=== PATIENT | male | born 1980 | race Caucasian/White ===

== ENCOUNTER 2018-11-21 11:49 | Inpatient (IN) | payer OTHER ==
[2018-11-21 12:42] VITALS: BMI 25.1
--- NOTE | 2018-11-21 12:57 | HP ---
COWS - Scale Resting Pulse: 1= [place] 81-100 Sweatin= No chills or Flushing Restless Observation: 1= Difficult to Sit Still Pupil Size: 0= Normal to Room Light Bone or Joint Aches: 2= Severe Diffuse Aches Runny Nose/ Eye Tearin= Nasal Congestion GI Upset > 30mins: 1= Stomach Cramp Tremor Observation: 2= Slight Tremor Visible Yawning Observation: 1= 1-2x During Session Anxiety or Irritability: 2=Irritable/Anxious Goose Flesh Skin: 0=Smooth Skin COWS Score: 11 CIWA Score Nausea/Vomitin Muscle Tremors: 4-Moderate,w/Arms Extend Anxiety: 4-Mod. Anxious/Guarded Agitation: 1-Slight > Activity Paroxysmal Sweats: No Perspiration Orientation: 0-Oriented Tacttile Disturbances: 0-None Auditory Disturbances: 0-None Visual Disturbances: 0-None Headache: 2-Mild CIWA-Ar Total Score: 13 - Admission Criteria [facility] Guidelines: Admission for Medically Managed Detox: Requires at least one of the followin. CIWA greater than 12 2. Seizures within the past 24 hours 3. Delirium tremens within the past 24 hours 4. Hallucinations within the past 24 hours 5. Acute intervention needed for co occurring medical disorder 6. Acute intervention needed for co occurring psychiatric disorder 7. Severe withdrawal that cannot be handled at a lower level of care (continued vomiting, continued diarrhea, abnormal vital signs) requiring intravenous medication and/or fluids 8. Patient presents the following: CIWA greater than 12 Admission Criteria Met: Admission criteria met Admission ROS [facility] Chief Complaint: I need help, I messed up, I need group home. Allergies/Adverse Reactions: Allergies Allergy/AdvReac Type Severity Reaction Status Date / Time No Known Allergies Allergy Verified 11/21/18 12:15 History of Present Illness: 38 yo gentleman here for detox from opiates, also using benzo and alcohol. Patient was is in detox at [facility] and discharged on 11/13/18 but his rehab plan fell through and he relapsed. Denies overdoses but has had black outs. Denies seizures. urine tox + buprenorphine - states he was on a suboxone detox at [facility]. Patient declines PPD - prefers Chest x-ray, does not like 'needles'. Exam Limitations: Clinical Condition - Ebola screening Have you traveled outside of the country in the last 21 days: No (N) Have you had contact with anyone from an Ebola affected area: No Have you been sick,other than usual withdrawal symptoms: No Do you have a fever: No - Review of Systems Constitutional: Chills, Loss of Appetite, Night Sweats, Changes in sleep EENT: reports: Nose Congestion Respiratory: reports: No Symptoms reported Cardiac: reports: No Symptoms Reported GI: reports: Constipated, Nausea, Indigestion : reports: Dysuria Musculoskeletal: reports: Back Pain, Muscle Pain Integumentary: reports: No Symptoms Reported Neuro: reports: Headache, Tremors Endocrine: reports: No Symptoms Reported Hematology: reports: No Symptoms Reported Psychiatric: reports: Judgement Intact, Mood/Affect Appropiate, Orientated x3, Anxious Other Systems: Reviewed and Negative Patient History - Patient Medical History Hx Asthma: No Hx Chronic Obstructive Pulmonary Disease (COPD): No Hx Cancer: No Hx Cardiac Disorders: No Hx Congestive Heart Failure: No Hx Hypertension: No Hx Hypercholesterolemia: No Hx Pacemaker: No Hx Seizures: No Hx Diabetes: No Hx Gastrointestinal Disorders: No Hx Liver Disease: No Hx Genitourinary Disorders: No Hx Sexually Transmitted Disorders: No Hx Renal Disease (ESRD): No Hx Thyroid Disease: No Hx Human Immunodeficiency Virus (HIV): No Hx Hepatitis C: No Hx Depression: Yes (sees psych, hx prozac) Hx Suicide Attempt: No (denies) Hx Bipolar Disorder: No Hx Schizophrenia: No - Patient Surgical History Past Surgical History: No - PPD History Previous Implant?: Yes Documented Results: Negative w/o proof (done at [facility] - patient declines PPD) Implanted On Prior R Admission?: No - Reproductive History Patient is a Female of Child Bearing Age (11 -55 yrs old): No (male) - Smoking Cessation Smoking history: Current every day smoker Have you smoked in the past 12 months: No Aproximately how many cigarettes per day: 20 Initiated information on smoking cessation: Yes 'Breaking Loose' booklet given: 11/21/18 (give on floor) - Substance & Tx. History Hx Alcohol Use: Yes Hx Substance Use: Yes Substance Use Type: Alcohol, Cocaine, Heroin, Opiates, Tranquilizers Hx Substance Use Treatment: Yes (detox, rehab, methadone) - Substances Abused Heroin Route: SNIFF Frequency: Daily Amount used: 5 BAGS Age of first use: 30 Date of Last Use: 11/20/18 Cocaine Route: Smoking Frequency: Daily Amount used: 2 GRAMS Age of first use: 15 Date of Last Use: 11/20/18 Alprazolam (Xanax) Route: Oral Frequency: 1-2 times per week Amount used: 2 /2MG Age of first use: 20 Date of Last Use: 11/20/18 buprenorphine Route: Oral alcohol Route: Oral Frequency: 3-6 times per week Amount used: six pack 22oz beer; 1 pint whiskey Age of first use: 13 Date of Last Use: 11/20/18 Family Disease History - Family Disease History Family Disease History: Diabetes: Father (living, depression, hx etoh), Heart Disease: Father, Mother (living, ), CA: Sister (two - one with cancer), Other: Father, Mother, Brother (one - etoh ), Sister, Daughter (age 12 - healthy) Admission Physical Exam [facility] - Vital Signs Vital Signs: Vital Signs - 24 hr 11/21/18 12:41 Temperature 97.3 F L Pulse Rate 90 Respiratory 18 Rate Blood Pressure 113/57 L - Physical General Appearance: Yes: Nourished, Appropriately Dressed, Moderate Distress, Anxious HEENTM: Yes: EOMI, Hearing grossly Normal, Normocephalic, Normal Voice, Pharynx Normal, Nasal Congestion Respiratory: Yes: Normal Breath Sounds, No Respiratory Distress Neck: Yes: No masses,lesions,Nodules, Supple Breast: Yes: Breast Exam Deferred Cardiology: Yes: Regular Rhythm, Regular Rate Abdominal: Yes: Flat, Soft Genitourinary: Yes: Frequency Back: Yes: Normal Inspection Musculoskeletal: Yes: full range of Motion, Gait Steady Extremities: Yes: Normal Inspection, Normal Range of Motion, Non-Tender Neurological: Yes: Fully Oriented, Alert, Motor Strength 5/5, Normal Mood/Affect , Normal Response Cleared for Admission [facility] - Detox or Rehab [facility] Level of Care: Medically Managed Detox Regimen/Protocol: Methadone/Valium [facility] Breath Alcohol Content Breath Alcohol Content: 0 Urine Drug Screen - Results Drug Screen Negative: No Urine Drug Screen Results: STEFAN-Cocaine, OPI-Opiates, BZO-Benzodiazepines, BUP- Suboxone
[2018-11-21] MEDS ORDERED: METHADONE HCL 10 MG TABLET (FOR DETOX USE ONLY) PO ONE ×2 (13:09→23:00)
[2018-11-21] MEDS ORDERED: MAGNESIUM CITRATE 300 ML BOTTLE PO PRN (13:09)
[2018-11-21] MEDS ORDERED: LOPERAMIDE HCL 2 MG CAPSULE PO PRN (13:09)
[2018-11-21] MEDS ORDERED: ACETAMINOPHEN 325 MG TABLET (FP) PO PRN (13:09)
[2018-11-21] MEDS ORDERED: P-EPHED 60MG/TRIPROLIDI 2.5MG TABLET PO PRN (13:09)
[2018-11-21] MEDS ORDERED: MENTHOL/PHENOL 1 EACH UD MM PRN (13:09)
[2018-11-21] MEDS ORDERED: IBUPROFEN 400 MG TABLET (FP) PO PRN (13:09)
[2018-11-21] MEDS ORDERED: MAG HYDROX/AL HYDROX/SIMETH 30 ML UNIT-DOSE CUP PO PRN (13:09)
[2018-11-21] MEDS ORDERED: MAGNESIUM HYDROX 2400MG/30ML ORAL SUSPENSION 30 ML CUP PO PRN (13:09)
[2018-11-21] MEDS ORDERED: guaiFENesin/D-METHORPHAN HB 10 ML UNIT-DOSE CUPS PO PRN (13:09)
[2018-11-21] MEDS ORDERED: diazePAM 5 MG TABLET PO ONE (14:00)
[2018-11-21] MEDS: diazePAM 5 MG TABLET PO SCH ×2 (14:31→22:46)
[2018-11-21] MEDS: diazePAM 5 MG TABLET PO PRN (20:30)
[2018-11-21 21:01] LABS: URINE APPEARANCE TURBID; URINE BILIRUBIN NEGATIVE (<2.0 mg/dL); URINE COLOR YELLOW; URINE GLUCOSE (UA) NEGATIVE (NEGATIVE); URINE KETONE NEGATIVE (NEGATIVE); URINE LEUK ESTERASE NEGATIVE (NEGATIVE); URINE NITRITE NEGATIVE (NEGATIVE); URINE PROTEIN 1+ (NEGATIVE)
[2018-11-21 21:14] LABS: URINE MUCUS RARE; YEAST MANY
[2018-11-21] MEDS ORDERED: MELATONIN 5 MG TABLETS PO PRN (22:00)
[2018-11-21] MEDS: THIAMINE HCL 100 MG TABLET (FP) PO SCH (22:46)
[2018-11-22] MEDS: diazePAM 5 MG TABLET PO SCH ×3 (06:59→22:13)
--- NOTE | 2018-11-22 09:09 | CONSULT ---
[facility] Psychiatric Consult - Data Date of interview: 11/22/18 Admission source: Referred to our Dtox by [facility] Identifying data: Patient is a 38 y/o male single, unemployed homeless, father of a 12 y/o pubescent female admitted to our unit for subtance use disorder Substance Abuse History: Patient was in inpatient Detox @ [facility] last week , his after care plan for Rehab was not implemented and he relapsed on ETOH, Heroin, Cocaine ans street Xanax. He began drinking at age 18 and drank beer daily prior his admission, smokes cocaine and sniff Heroin daily. He acknowledged 4 prior Detox admissions, [facility], [facility]. He denies history of drug withdrawal, black out spells or seizure disorder. He explained that he was on Suboxone @ [place] Medical History: He denies past acute medcial or surgical illnesses. Overall healthy male Psychiatric History: Patient struglles with depression for about a decade, he has no prior psychiatric hospitalization, [facility] Currently he feels depressed, anxious, with insomnia , he complains of poor appetite and weight loss. Patient has been of his antidepressant medciation for several years. He denies prior suicide ideation intent or plan Physical/Sexual Abuse/Trauma History: No history of abuse Additional Comment: Minor trouble with the law in the past Mental Status Exam - Mental Status Exam Alert and Oriented to: Time, Place, Person Cognitive Function: Grossly Intact Patient Appearance: Well Groomed Mood: Sad Affect: Appropriate Patient Behavior: Appropriate, Cooperative Speech Pattern: Appropriate Voice Loudness: Normal Thought Process: Intact Hallucinations: Denies Suicidal Ideation: Denies Homicidal Ideation: Denies Insight/Judgement: Poor Sleep: Poorly Appetite: Fair Muscle strength/Tone: Normal Gait/Station: Normal Psychiatric Findings - Problem List ([place] 1, 2,3) (1) Anxiety Current Visit: Yes Status: Acute (2) Nicotine dependence Current Visit: Yes Status: Acute Qualifiers: Nicotine product type: cigarettes Substance use status: uncomplicated Qualified Code(s): F17.210 - Nicotine dependence, cigarettes, uncomplicated (3) Alcohol dependence with uncomplicated withdrawal Current Visit: Yes Status: Chronic (4) Opioid dependence with withdrawal Current Visit: Yes Status: Chronic (5) Sedative, hypnotic or anxiolytic dependence with withdrawal, uncomplicated Current Visit: Yes Status: Chronic - Initial Treatment Plan Initial Treatment Plan: Continue Detox treatment. Patient decine to resume his Prozac medciation and would rather be medciatid to alleviate his anxiety symptoms. Psychoeducation. Hydroxyzine 50 mg po q hs. Sara bronson
[2018-11-22] MEDS ORDERED: hydrOXYzine HCL 25 MG TABLET (FP) PO ONE (09:22)
[2018-11-22] MEDS ORDERED: METHADONE HCL 10 MG TABLET (FOR DETOX USE ONLY) PO SCH (10:00)
[2018-11-22] MEDS: diazePAM 5 MG TABLET PO PRN ×2 (10:50→19:24)
[2018-11-22] MEDS: PRENATAL VITAMINS W/ FOLIC ACID TABLET (FP) PO SCH (10:51)
[2018-11-22] MEDS: hydrOXYzine HCL 25 MG TABLET (FP) PO ONE ×2 (11:00→12:58)
[2018-11-22 11:21] LABS: ALBUMIN 3.6 g/dl (3.4-5.0); ALK PHOS 92 U/L (45-117); ANION GAP 8 MMOL/L (8-16); BILIRUBIN,TOTAL 0.4 mg/dL (0.2-1); BLOOD UREA NITROGEN 20 mg/dL (7-18); CALCIUM 8.5 mg/dL (8.5-10.1); CHLORIDE 107 mmol/L (98-107); CO2 26 mmol/L (21-32); CREATININE 0.8 mg/dL (0.55-1.3); GLUCOSE,RANDOM 91 mg/dL (74-106); POTASSIUM 4.4 mmol/L (3.5-5.1); SGOT/AST 24 U/L (15-37); SGPT/ALT 71 U/L (13-61); SODIUM 142 mmol/L (136-145); TOT PROT 6.7 g/dl (6.4-8.2)
[2018-11-22 11:30] LABS: HEMATOCRIT 43.2 % (35.4-49); HEMOGLOBIN 15.2 GM/dL (11.7-16.9); MCHC 35.3 g/dl (32.0-35.9); MEAN CELL VOLUME 93.5 fl (80-96); MEAN PLT VOLUME 8.1 fl (7.5-11.1); PLATELET COUNT 297 K/MM3 (134-434); RBC 4.62 M/mm3 (4.00-5.60); RDW 13.4 % (11.9-15.9); WHITE BLOOD COUNT 6.9 K/mm3 (4.0-10.0)
--- NOTE | 2018-11-22 13:49 | PN ---
[facility] CIWA - CIWA Score Nausea/Vomitin-Mild Nausea/No Vomiting Muscle Tremors: 3 Anxiety: 1-Mildly Anxious Agitation: 2 Paroxysmal Sweats: 1-Minimal Palms Moist Orientation: 1-Uncertain about Date Tacttile Disturbances: 0-None Auditory Disturbances: 0-None Visual Disturbances: 0-None Headache: 2-Mild CIWA-Ar Total Score: 11 [facility] COWS - Scale Resting Pulse: 0= [place] 80 or Below Sweatin= Chills/Flushing Restless Observation: 0= Sits Still Pupil Size: 0= Normal to Room Light Bone or Joint Aches: 1= Mild Discomfort Runny Nose/ Eye Tearin= Nasal Congestion GI Upset > 30mins: 2= Nausea/Diarrhea Tremor Observation of Outstretched Hands: 2= Slight Tremor Visible Yawning Observation: 1= 1-2x During Session Anxiety or Irritability: 1=Feels Anxious/Irritable Goose Flesh Skin: 0=Smooth Skin COWS Score: 9 [facility] Progress Note (SOAP) Subjective: tremor body aches sweating joints pain muscle cramping anxiety Objective: 11/22/18 14:06 Vital Signs Temperature 97.9 F 11/22/18 09:17 Pulse Rate 80 11/22/18 09:17 Respiratory Rate 18 11/22/18 09:17 Blood Pressure 115/70 11/22/18 09:17 O2 Sat by Pulse Oximetry (%) Laboratory Last Values WBC 6.9 K/mm3 (4.0-10.0) 11/22/18 07:35 RBC 4.62 M/mm3 (4.00-5.60) 11/22/18 07:35 Hgb 15.2 GM/dL (11.7-16.9) 11/22/18 07:35 Hct 43.2 % (35.4-49) 11/22/18 07:35 MCV 93.5 fl (80-96) 11/22/18 07:35 MCH 33.0 pg (25.7-33.7) 11/22/18 07:35 MCHC 35.3 g/dl (32.0-35.9) 11/22/18 07:35 RDW 13.4 % (11.9-15.9) 11/22/18 07:35 Plt Count 297 K/MM3 (134-434) 11/22/18 07:35 MPV 8.1 fl (7.5-11.1) 11/22/18 07:35 Sodium 142 mmol/L (136-145) 11/22/18 07:35 Potassium 4.4 mmol/L (3.5-5.1) 11/22/18 07:35 Chloride 107 mmol/L (98-107) 11/22/18 07:35 Carbon Dioxide 26 mmol/L (21-32) 11/22/18 07:35 Anion Gap 8 MMOL/L (8-16) 11/22/18 07:35 BUN 20 mg/dL (7-18) H 11/22/18 07:35 Creatinine 0.8 mg/dL (0.55-1.3) 11/22/18 07:35 Creat Clearance w eGFR > 60 (>60) 11/22/18 07:35 Random Glucose 91 mg/dL (74-106) 11/22/18 07:35 Calcium 8.5 mg/dL (8.5-10.1) 11/22/18 07:35 Total Bilirubin 0.4 mg/dL (0.2-1) 11/22/18 07:35 AST 24 U/L (15-37) 11/22/18 07:35 ALT 71 U/L (13-61) H 11/22/18 07:35 Alkaline Phosphatase 92 U/L (45-117) 11/22/18 07:35 Total Protein 6.7 g/dl (6.4-8.2) 11/22/18 07:35 Albumin 3.6 g/dl (3.4-5.0) 11/22/18 07:35 Urine Color Yellow 11/21/18 14:46 Urine Appearance Turbid 11/21/18 14:46 Urine pH 7.0 (5.0-8.0) 11/21/18 14:46 Ur Specific [place] 1.030 (1.010-1.035) 11/21/18 14:46 Urine Protein 1+ (NEGATIVE) H 11/21/18 14:46 Urine Glucose (UA) Negative (NEGATIVE) 11/21/18 14:46 Urine Ketones Negative (NEGATIVE) 11/21/18 14:46 Urine Blood Negative (NEGATIVE) 11/21/18 14:46 Urine Nitrite Negative (NEGATIVE) 11/21/18 14:46 Urine Bilirubin Negative (<2.0 mg/dL) 11/21/18 14:46 Urine Urobilinogen 2.0 mg/dL (0.2-1.0) 11/21/18 14:46 Ur Leukocyte Esterase Negative (NEGATIVE) 11/21/18 14:46 Urine WBC (Auto) None /hpf (3-5) 11/21/18 14:46 Urine RBC (Auto) None /hpf (0-3) 11/21/18 14:46 Urine Mucus Rare 11/21/18 14:46 Urine Yeast Many 11/21/18 14:46 RPR Titer Nonreactive (NONREACTIVE) 11/22/18 07:35 lab noted Assessment: 11/22/18 14:08 withdrawal sx Plan: continue detox
--- NOTE | 2018-11-22 19:40 | EKG ---
Test Reason : Blood Pressure : / mmHG Vent. Rate : 091 BPM Atrial Rate : 091 BPM P-R Int : 148 ms QRS Dur : 088 ms QT Int : 376 ms P-R-T Axes : 053 056 042 degrees QTc Int : 462 ms NORMAL SINUS RHYTHM NORMAL ECG NO PREVIOUS ECGS AVAILABLE Confirmed by GLEN BULL MD ([id number]) on 11/22/2018 7:40:10 PM Referred By: Confirmed By:GLEN BULL MD
[2018-11-22] MEDS: THIAMINE HCL 100 MG TABLET (FP) PO SCH (22:13)
[2018-11-23] MEDS: diazePAM 5 MG TABLET PO PRN (04:21)
--- NOTE | 2018-11-23 04:56 | PN ---
[facility] Progress Note Note: As per nurse, . Carrie Diamond she heard a thud sound coming from the room and went to investigate. Patient reported that he fell and does not want to talk about it or to be examined at bedside. On further questioning, patient report that he does not know what happened but have had previous blackouts before. Fall protocol # 1 initiated. Patient is being transferred to ER. [place]orsed to [place] Vital Signs Temperature 98.8 F 11/23/18 04:47 Pulse Rate 113 H 11/23/18 04:47 Respiratory Rate 18 11/23/18 04:47 Blood Pressure 133/58 L 11/23/18 04:47 O2 Sat by Pulse Oximetry (%)
--- NOTE | 2018-11-23 05:03 | PN ---
[facility] Progress Note Note: Patient r
[2018-11-23 08:03] VITALS: BP 146/78; PULSE 115; TEMP 97.3
[2018-11-23] MEDS ORDERED: METHADONE HCL 5 MG TABLET (FOR DETOX USE ONLY) PO SCH (10:00)
[2018-11-23] MEDS ORDERED: diazePAM 5 MG TABLET PO SCH (10:00)
[2018-11-23] MEDS: PRENATAL VITAMINS W/ FOLIC ACID TABLET (FP) PO SCH (11:53)
[2018-11-25] MEDS ORDERED: METHADONE HCL 10 MG TABLET (FOR DETOX USE ONLY) PO SCH (10:00)
[2018-11-25] MEDS ORDERED: diazePAM 5 MG TABLET PO SCH (10:00)
[2018-11-26] MEDS ORDERED: METHADONE HCL 5 MG TABLET (FOR DETOX USE ONLY) PO SCH (06:00)
== END 2018-11-23 22:57 | disposition short-term general hospital (02) | DRG 773 ==
LOC: YASAS 11:49 → Y6N 12:47
PROVIDERS: ADMIT Neuromusculoskeletal Medicine & OMM; ATTEND Neuromusculoskeletal Medicine & OMM
PROC: HZ2ZZZZ Detoxification Services for Substance Abuse Treatment (ICD-10-PCS; principal; 2018-11-21)
DX: F11.23 Opioid dependence with withdrawal (principal); F10.230 Alcohol dependence with withdrawal, uncomplicated; F13.230 Sedative, hypnotic or anxiolytic dependence with withdrawal, uncomplicated; F17.210 Nicotine dependence, cigarettes, uncomplicated; F41.9 Anxiety disorder, unspecified; W18.30XA Fall on same level, unspecified, initial encounter; Y93.9 Activity, unspecified; Y92.230 Patient room in hospital as the place of occurrence of the external cause
CPT/HCPCS: 36415; 80053; 81003; 81015; 85027; 86593; 93005; 93010

== ENCOUNTER 2018-11-23 05:54 | Observation (INO) | payer OTHER ==
[2018-11-23] MEDS ORDERED: SODIUM CHLORIDE 2,381 ML IV ONE (06:59)
[2018-11-23] MEDS ORDERED: ACETAMINOPHEN 325 MG TABLET (FP) PO ONE (07:11)
[2018-11-23] MEDS ORDERED: ACETAMINOPHEN 325 MG TABLET (FP) ONE (07:52)
[2018-11-23 07:58] LABS: BASO % 0.2 % (0-2.0); EOS % 1.2 % (0-4.5); HEMATOCRIT 37.9 % (35.4-49); HEMOGLOBIN 13.4 GM/dL (11.7-16.9); LYMPH % 2.8 % (8-40); MCH 32.6 pg (25.7-33.7); MCHC 35.4 g/dl (32.0-35.9); MEAN CELL VOLUME 92.3 fl (80-96); MEAN PLT VOLUME 7.9 fl (7.5-11.1); MONO % 4.4 % (3.8-10.2); NEUT % 91.4 % (42.8-82.8); PLATELET COUNT 177 K/MM3 (134-434); RDW 12.8 % (11.9-15.9); WHITE BLOOD COUNT 7.8 K/mm3 (4.0-10.0)
[2018-11-23] MEDS ORDERED: METOCLOPRAMIDE HCL 10 MG TABLET (FP) PO ONE (07:58)
[2018-11-23 08:06] LABS: VENOUS PC02 37.8 mmHg (38-52); VENOUS PH 7.41 (7.32-7.42); VENOUS PO2 60.8 mmHg (28-48)
--- NOTE | 2018-11-23 08:07 | PDOC ---
History of Present Illness - General Chief Complaint: Syncope/Near Syncope Stated Complaint: SYNCOPE Time Seen by Provider: 11/23/18 06:59 History Source: Patient Exam Limitations: No Limitations - History of Present Illness Initial Comments: Patient is a 38 y/o M w/o significant PMHx presenting from [facility]. He had checked in for cocaine and heroin detoxification on Friday11/21/18. During his stay there he experienced significant nausea and vomiting, headache, photophobia, chest pain, SOB, and states he had 3 separate episodes of LOC at least one of which resulted in head trauma. The timeline over which these events occurred is unclear. He is febrile and tachycardic on presentation. ROS otherwise negative. 11/23/18 08:00 Past History - Travel Traveled outside of the country in the last 30 days: No Close contact w/someone who was outside of country & ill: No - Past Medical History Allergies/Adverse Reactions: Allergies Allergy/AdvReac Type Severity Reaction Status Date / Time No Known Allergies Allergy Verified 11/21/18 12:15 Home Medications: Ambulatory Orders NK [No Known Home Medication] 11/21/18 Asthma: No Cancer: No Cardiac Disorders: No COPD: No CHF: No Diabetes: No GI Disorders: No Disorders: No HTN: No Hypercholesterolemia: No Liver Disease: No Seizures: No Thyroid Disease: No - Suicide/Smoking/Psychosocial Hx Smoking History: Current every day smoker Have you smoked in the past 12 months: Yes Number of Cigarettes Smoked Daily: 1 Information on smoking cessation initiated: No 'Breaking Loose' booklet given: 11/21/18 (give on floor) Hx Alcohol Use: Yes Drug/Substance Use Hx: Yes Substance Use Type: Alcohol, Cocaine, Heroin, Opiates, Tranquilizers Hx Substance Use Treatment: Yes (detox, rehab, methadone) Review of Systems - Review of Systems Comments:: As per HPI. 11/23/18 08:03 *Physical Exam - Vital Signs Last Vital Signs Temp Pulse Resp BP Pulse Ox 101.8 F H 112 H 20 136/88 96 11/23/18 05:57 11/23/18 05:57 11/23/18 05:57 11/23/18 05:57 11/23/18 05:57 - Physical Exam Comments: Gen: Lethargic, A&Ox3 HEENT: NC/AT, no scalp lesions or tenderness, +photophobia, difficulty complying w/ eye exam, PERRLA, EOMI, MMM, no rhinorrhea, no focal sinus tenderness Neck: supple, no rigidity, no LAD, no JVD CV: tachycardic no m/r/g Resp: borderline tachypneic w/ exaggerated inspiration, CTA b/l Abd: +bs, soft, NT, ND Extremities: 2+ pulses, wwp, no edema, no calf tenderness 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, 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, sensory systems w/o focal deficit Skin: warm, dry, normal turgor Detox: CIWA score 11 (was 14 on intake at [facility], has received benzodiazepenes prior to arrival in ED) 11/23/18 08:03 Moderate Sedation - Procedure Monitoring Vital Signs: Procedure Monitoring Vital Signs Temperature 101.8 F H 11/23/18 05:57 Pulse Rate 112 H 11/23/18 05:57 Respiratory Rate 20 11/23/18 05:57 Blood Pressure 136/88 11/23/18 05:57 O2 Sat by Pulse Oximetry (%) 96 11/23/18 05:57 ED Treatment Course - LABORATORY CBC & Chemistry Diagram: 11/23/18 07:45 11/23/18 07:45 - RADIOLOGY Radiology Studies Ordered: Category Date Time Status HEAD CT WITHOUT CONTRAST [CT] Stat CT Scan 11/23/18 07:57 Ordered CHEST X-RAY PORTABLE* [RAD] Stat Radiology 11/23/18 07:00 Taken Medical Decision Making - Medical Decision Making Signs and symptoms are most likely related to acute withdrawal and volume depletion but infectious cause cannot be excluded. Complaint of chest pain in setting of recent cocaine use is noted. Ordered full sepsis w/u as well as Mg, Phos, UTox, flu swab. NCHCT ordered given unwitnessed fall, report of head trauma, and mental alteration. Initiated weight-based fluid resuscitation and gave Tylenol and Reglan. 11/23/18 08:07 Initial labs show elevated lactate w/o leukocytosis. 11/23/18 08:16 Mg and Phos low, K borderline low. Repletion with Mg and K-Phos. 11/23/18 09:01 UA negative. UTox positive for cocaine (benzodiazepine and methadone administration at [facility] are documented). 11/23/18 09:12 Troponin negative. Flu swab negative. 11/23/18 09:13 Repeat lactate resolved. 11/23/18 11:31 No acute pathology on HCT. 11/23/18 11:33 No longer febrile. One low blood pressure was recorded but immediate re- assessment was 110/64. Will admit for observation to complete electrolyte repletion. 11/23/18 11:47 *DC/Admit/Observation/Transfer Diagnosis at time of Disposition: Electrolyte abnormality - Discharge Dispostion Decision to Admit order: Yes - Referrals - Patient Instructions - Post Discharge Activity
[2018-11-23 08:15] LABS: INR 0.99 (0.83-1.09); PROTHROMBIN TIME (PATIENT) 11.7 SEC (9.7-13.0)
[2018-11-23 08:16] LABS: URINE APPEARANCE CLEAR; URINE BILIRUBIN NEGATIVE (<2.0 mg/dL); URINE COLOR STRAW; URINE GLUCOSE (UA) NEGATIVE (NEGATIVE); URINE KETONE NEGATIVE (NEGATIVE); URINE LEUK ESTERASE NEGATIVE (NEGATIVE); URINE NITRITE NEGATIVE (NEGATIVE); URINE PROTEIN NEGATIVE (NEGATIVE); URINE UROBILINOGEN NEGATIVE mg/dL (0.2-1.0)
[2018-11-23 08:17] LABS: ACTIVATED PTT 32.6 SECONDS (25.2-36.5)
[2018-11-23 08:24] LABS: OPIATES, URI NEGATIVE ng/ml (CUTOFF=300); PHENCYCLIDINE,URINE NEGATIVE ng/ml (CUTOFF=25); URINE AMPHETAMINES NEGATIVE ng/ml (CUTOFF=500); URINE BARBITURATES NEGATIVE ng/ml (CUTOFF=200)
[2018-11-23 08:29] LABS: COCAINE, UR POSITIVE ng/ml (CUTOFF=300); METHADONE, UR POSITIVE ng/ml (CUTOFF=300); URINE BENZODIAZEPINES POSITIVE ng/ml (CUTOFF=200)
[2018-11-23 08:34] LABS: ALBUMIN 3.6 g/dl (3.4-5.0); ALK PHOS 75 U/L (45-117); ANION GAP 9 MMOL/L (8-16); BILIRUBIN,TOTAL 0.6 mg/dL (0.2-1); BLOOD UREA NITROGEN 16 mg/dL (7-18); CALCIUM 8.3 mg/dL (8.5-10.1); CHLORIDE 103 mmol/L (98-107); CO2 25 mmol/L (21-32); GLUCOSE,RANDOM 99 mg/dL (74-106); MAGNESIUM 1.2 mg/dL (1.8-2.4); POTASSIUM 3.6 mmol/L (3.5-5.1); SGOT/AST 24 U/L (15-37); SGPT/ALT 56 U/L (13-61); SODIUM 137 mmol/L (136-145); TOT PROT 6.4 g/dl (6.4-8.2)
[2018-11-23] MEDS ORDERED: MAGNESIUM SULF 50% (8.12 MEQ/2 ML-1 GM VIAL) IVPB ONE (08:36)
[2018-11-23] MEDS ORDERED: POTASSIUM CHLORIDE TABS 20 MEQ TABLET.ER (FP) PO ONE (08:36)
[2018-11-23 08:38] LABS: PHOSPHOROUS 0.7 mg/dL (2.5-4.9)
[2018-11-23] MEDS ORDERED: POTASSIUM PHOSPHATE 45 MM in SODIUM CHLORIDE 250 ML IVPB ONE (08:44)
[2018-11-23] MEDS ORDERED: METOCLOPRAMIDE HCL INJECTION 10 MG/2 ML VIAL IVPUSH ONE (08:48)
--- NOTE | 2018-11-23 08:48 | PDOC ---
Attending Attestation - Resident Resident Name: Branden Gann - ED Attending Attestation I have performed the following: I have examined & evaluated the patient, The case was reviewed & discussed with the resident, I agree w/resident's findings & plan - HPI HPI: 11/23/18 08:43 Healthy 38-year-old male with no severe past medical history, history of substance abuse admitted to [facility] 2 days ago for heroin/alcohol/cocaine detox presents now after fall/syncope in the setting of one to 2 days of vomiting/diarrhea/body aches. Patient does not clearly recall the fall, denies hitting his head, reports body aches at this time over the last couple of days with slight nasal congestion and frontal headache, no cardiopulmonary symptoms, vomiting and diarrhea that was nonbloody and nonbilious and not associated with abdominal pain. No history of recurring infections, does have history of loss of consciousness/falls in the past. - Physicial Exam PE: 11/23/18 08:45 Afebrile here, slight associated tachycardia, blood pressure normal, O2 sat normal Asleep in stretcher but arousable to voice, conversant and oriented Head is atraumatic Neck is supple without rigidity, oropharynx is clear, speech is clear heart is regular slight tachycardia with no murmur, lungs are clear, abdomen benign No extremity trauma or infection, neurologically intact - Medical Decision Making 11/23/18 08:46 38-year-old male from [facility] where he is admitted for detox for polysubstance abuse resents with fever and fall this morning. Trauma exam is unremarkable, infectious etiology with localizing symptoms of nasal congestion, vomiting/diarrhea, body aches. Neurologically intact. Question viral etiology such as influenza or gastroenteritis, rule out pneumonia. Question detox syndrome, less consistent with focal RN CIRCULATING infection. Sepsis protocol initiated, Labs including influenza Chest x-ray, CT head IV fluids, Tylenol, antiemetic Reassess 11/23/18 09:42 No leukocytosis or acidosis, lactate slightly elevated at 2.3, hypomagnesemia and hypophosphatemia which are being repleted, urinalysis clear, urine tox expectedly positive, chest x-ray normal. Receiving IV fluids, Tylenol, Reglan. CT head pending, we'll reassess. Heart Score/ECG Review #1 ECG reviewed & interpreted by me at: 08:09 General ECG Interpretation: Sinus Rhythm, Normal Rate (102), Normal Intervals ( qtc 411, qrs 90), No acute ischemic changes
[2018-11-23] MEDS ORDERED: MAGNESIUM 1GM/D5W - 2 GM/200 ML IVPB IVPB ONE (08:49)
[2018-11-23] MEDS ORDERED: METOCLOPRAMIDE HCL INJECTION 10 MG/2 ML VIAL ONE (08:49)
[2018-11-23] MEDS ORDERED: POTASSIUM PHOSPHATE 45 MM in SODIUM CHLORIDE 500 ML IVPB ONE (09:30)
--- NOTE | 2018-11-23 11:08 | EKG ---
Test Reason : Blood Pressure : / mmHG Vent. Rate : 102 BPM Atrial Rate : 102 BPM P-R Int : 152 ms QRS Dur : 090 ms QT Int : 316 ms P-R-T Axes : 054 038 028 degrees QTc Int : 411 ms SINUS TACHYCARDIA OTHERWISE NORMAL ECG WHEN COMPARED WITH ECG OF 21-NOV-2018 13:59, NO SIGNIFICANT CHANGE WAS FOUND Confirmed by GLEN BULL MD ([id number]) on 11/23/2018 11:07:58 AM Referred By: Confirmed By:GLEN BULL MD
[2018-11-23 11:10] LABS: ACANTHOCYTES 0; ANISOCYTOSIS 0; HELMET CELLS 0; HOWELL-JOLLY BODIES 0; MACROCYTOSIS 0; OVALOCYTE 0; PLATELET ESTIMATE NORMAL; ROULEAU 0; SICKELED CELLS 0; TARGET CELLS 0; TEAR DROP CELLS 0; TOXIC GRANULATION 0
--- NOTE | 2018-11-23 16:30 | HP ---
Admitting History and Physical - Primary Care Physician PCP: Evan Mcrae - Admission History of Present Illness: Healthy 38-year-old male with no severe past medical history, history of substance abuse admitted to [facility] [place] 2 days ago for heroin/alcohol/cocaine detox presents now after fall/syncope in the setting of one to 2 days of vomiting/diarrhea/body aches. Patient does not clearly recall the fall, denies hitting his head, reports body aches at this time over the last couple of days with slight nasal congestion and frontal headache. - Smoking History Smoking history: Current every day smoker Have you smoked in the past 12 months: Yes Aproximately how many cigarettes per day: 1 - Alcohol/Substance Use Hx Alcohol Use: Yes Home Medications - Allergies Allergies/Adverse Reactions: Allergies Allergy/AdvReac Type Severity Reaction Status Date / Time No Known Allergies Allergy Verified 11/21/18 12:15 - Home Medications Home Medications: Ambulatory Orders NK [No Known Home Medication] 11/21/18 Family Disease History - Family Disease History Family Disease History: Diabetes: Father (living, depression, hx etoh), Heart Disease: Father, Mother (living, ), CA: Sister (two - one with cancer), Other: Father, Mother, Brother (one - etoh ), Sister, Daughter (age 12 - healthy) Physical Examination Vital Signs: Vital Signs Temperature 98.7 F 11/23/18 14:48 Pulse Rate 75 11/23/18 14:48 Respiratory Rate 16 11/23/18 14:48 Blood Pressure 116/60 11/23/18 14:48 O2 Sat by Pulse Oximetry (%) 98 11/23/18 14:48 Constitutional: Yes: No Distress HENT: Yes: Atraumatic Neck: Yes: Supple Cardiovascular: Yes: Regular Rate and Rhythm Respiratory: Yes: CTA Bilaterally Gastrointestinal: Yes: Normal Bowel Sounds Extremities: Yes: WNL Labs: CBC, BMP 11/23/18 07:45 11/23/18 07:45 Imaging - Results Chest X-ray: Report Reviewed Cat Scan: Report Reviewed Problem List - Problems (1) Anxiety Code(s): F41.9 - ANXIETY DISORDER, UNSPECIFIED (2) Electrolyte abnormality Assessment/Plan: will replace electrolyte ivf Code(s): E87.8 - OTH DISORDERS OF ELECTROLYTE AND FLUID BALANCE, NEC (3) Nicotine dependence Code(s): F17.200 - NICOTINE DEPENDENCE, UNSPECIFIED, UNCOMPLICATED Qualifiers: (4) Alcohol dependence with uncomplicated withdrawal Assessment/Plan: will continue meds as per detox Code(s): F10.230 - ALCOHOL DEPENDENCE WITH WITHDRAWAL, UNCOMPLICATED Assessment/Plan Laboratory Tests 11/23/18 11/23/18 11/23/18 07:25 07:45 07:45 WBC 7.8 RBC 4.10 Hgb 13.4 Hct 37.9 MCV 92.3 MCH 32.6 MCHC 35.4 RDW 12.8 Plt Count 177 D MPV 7.9 Absolute Neuts (auto) 7.2 Neutrophils % 91.4 H Neutrophils % (Manual) 84.9 H Band Neutrophils % 6.1 Lymphocytes % 2.8 L Lymphocytes % (Manual) 2.0 L Monocytes % 4.4 Monocytes % (Manual) 2 L Eosinophils % 1.2 Eosinophils % (Manual) 1.0 Basophils % 0.2 Basophils % (Manual) 0.0 Myelocytes % (Man) 0 Promyelocytes % (Man) 0 Blast Cells % (Manual) 0 Nucleated RBC % 0 Metamyelocytes 0 Hypochromia 0 Toxic Granulation 0 Dohle Bodies 0 Platelet Estimate Normal Polychromasia 0 Poikilocytosis 0 Basophilic Stippling 0 Anisocytosis 0 Microcytosis 0 Macrocytosis 0 Spherocytes 0 Sickle Cells 0 Target Cells 0 Tear Drop Cells 0 Ovalocytes 0 Stomatocytes 0 Helmet Cells 0 [place] Bodies 0 [place] Rings 0 [place] Cells 0 Acanthocytes (Spur) 0 Rouleaux 0 Fragmented RBCs 0 Schistocytes 0 PT with INR 11.70 INR 0.99 PTT (Actin FS) 32.6 VBG pH POC VBG pCO2 POC VBG pO2 Mixed VBG HCO3 Sodium Potassium Chloride Carbon Dioxide Anion Gap BUN Creatinine Creat Clearance w eGFR Random Glucose Lactic Acid 2.3 H* Calcium Phosphorus Magnesium Total Bilirubin AST ALT Alkaline Phosphatase Troponin I Total Protein Albumin Urine Color Urine Appearance Urine pH Ur Specific [place] Urine Protein Urine Glucose (UA) Urine Ketones Urine Blood Urine Nitrite Urine Bilirubin Urine Urobilinogen Ur Leukocyte Esterase Opiates Screen Methadone Screen Barbiturate Screen Phencyclidine Screen Ur Amphetamines Screen MDMA (Ecstasy) Screen Benzodiazepines Screen Cocaine Screen U Marijuana (THC) Screen Influenza A (Rapid) Influenza B (Rapid) 01/21/19 01/21/19 01/21/19 07:45 07:45 08:00 WBC RBC Hgb Hct MCV MCH MCHC RDW Plt Count MPV Absolute Neuts (auto) Neutrophils % Neutrophils % (Manual) Band Neutrophils % Lymphocytes % Lymphocytes % (Manual) Monocytes % Monocytes % (Manual) Eosinophils % Eosinophils % (Manual) Basophils % Basophils % (Manual) Myelocytes % (Man) Promyelocytes % (Man) Blast Cells % (Manual) Nucleated RBC % Metamyelocytes Hypochromia Toxic Granulation Dohle Bodies Platelet Estimate Polychromasia Poikilocytosis Basophilic Stippling Anisocytosis Microcytosis Macrocytosis Spherocytes Sickle Cells Target Cells Tear Drop Cells Ovalocytes Stomatocytes Helmet Cells [place] Bodies [place] Rings [place] Cells Acanthocytes (Spur) Rouleaux Fragmented RBCs Schistocytes PT with INR INR PTT (Actin FS) VBG pH 7.41 POC VBG pCO2 37.8 L POC VBG pO2 60.8 H Mixed VBG HCO3 23.8 Sodium 137 Potassium 3.6 Chloride 103 Carbon Dioxide 25 Anion Gap 9 BUN 16 Creatinine 1.0 Creat Clearance w eGFR > 60 Random Glucose 99 Lactic Acid Calcium 8.3 L Phosphorus 0.7 L* Magnesium 1.2 L Total Bilirubin 0.6 AST 24 ALT 56 Alkaline Phosphatase 75 Troponin I < 0.02 Total Protein 6.4 Albumin 3.6 Urine Color Straw Urine Appearance Clear Urine pH 5.0 D Ur Specific [place] 1.010 Urine Protein Negative Urine Glucose (UA) Negative Urine Ketones Negative Urine Blood Negative Urine Nitrite Negative Urine Bilirubin Negative Urine Urobilinogen Negative Ur Leukocyte Esterase Negative Opiates Screen Methadone Screen Barbiturate Screen Phencyclidine Screen Ur Amphetamines Screen MDMA (Ecstasy) Screen Benzodiazepines Screen Cocaine Screen U Marijuana (THC) Screen Influenza A (Rapid) Influenza B (Rapid) 11/23/18 11/23/18 11/23/18 08:00 08:11 10:19 WBC RBC Hgb Hct MCV MCH MCHC RDW Plt Count MPV Absolute Neuts (auto) Neutrophils % Neutrophils % (Manual) Band Neutrophils % Lymphocytes % Lymphocytes % (Manual) Monocytes % Monocytes % (Manual) Eosinophils % Eosinophils % (Manual) Basophils % Basophils % (Manual) Myelocytes % (Man) Promyelocytes % (Man) Blast Cells % (Manual) Nucleated RBC % Metamyelocytes Hypochromia Toxic Granulation Dohle Bodies Platelet Estimate Polychromasia Poikilocytosis Basophilic Stippling Anisocytosis Microcytosis Macrocytosis Spherocytes Sickle Cells Target Cells Tear Drop Cells Ovalocytes Stomatocytes Helmet Cells [place]uro[place] Bodies [place] Rings Suzie Cells Acanthocytes (Spur) Rouleaux Fragmented RBCs Schistocytes PT with INR INR PTT (Actin FS) VBG pH POC VBG pCO2 POC VBG pO2 Mixed VBG HCO3 Sodium Potassium Chloride Carbon Dioxide Anion Gap BUN Creatinine Creat Clearance w eGFR Random Glucose Lactic Acid 1.6 Calcium Phosphorus Magnesium Total Bilirubin AST ALT Alkaline Phosphatase Troponin I Total Protein Albumin Urine Color Urine Appearance Urine pH Ur Specific [place] Urine Protein Urine Glucose (UA) Urine Ketones Urine Blood Urine Nitrite Urine Bilirubin Urine Urobilinogen Ur Leukocyte Esterase Opiates Screen Negative Methadone Screen Positive A* Barbiturate Screen Negative Phencyclidine Screen Negative Ur Amphetamines Screen Negative MDMA (Ecstasy) Screen Negative Benzodiazepines Screen Positive A* Cocaine Screen Positive A* U Marijuana (THC) Screen Negative Influenza A (Rapid) Negative Influenza B (Rapid) Negative Active Medications Generic Name Dose Route Start Last Admin Trade Name Freq PRN Reason Stop Dose Admin Potassium Phosphate 45 mm/ 515 mls @ 64.37 mls/hr 11/23/18 09:30 11/23/18 10: 04 Sodium Chloride IVPB 11/23/18 17:30 64.37 mls/hr ONCE ONE Administration 45 MM/8 HR Active Medications Generic Name Dose Route Start Last Admin Trade Name Freq PRN Reason Stop Dose Admin Diazepam 5 mg 11/24/18 09:24 11/24/18 14:41 Valium - PO 11/27/18 09:24 5 mg Q4H PRN Administration WITHDRAWAL(CONT SUBST) Prochlorperazine Edisylate 2.5 mg 11/24/18 09:25 Compazine Injection - IVPB Q4H PRN NAUSEA AND/OR VOMITING
[2018-11-23 16:58] VITALS: BMI 30.5
[2018-11-23] MEDS ORDERED: ONDANSETRON 4 MG/2 ML VIAL IVPUSH PRN (17:19)
[2018-11-23] MEDS: SODIUM CHLORIDE 1,000 ML IV SCH (17:34)
[2018-11-23] MEDS ORDERED: diazePAM 5 MG TABLET PO STA (23:33)
[2018-11-24] MEDS ORDERED: ACETAMINOPHEN 500 MG TABLET (FP) PO ONE (01:23)
[2018-11-24 07:52] LABS: BASO % 0.3 % (0-2.0); EOS % 3.7 % (0-4.5); HEMATOCRIT 35.1 % (35.4-49); HEMOGLOBIN 12.5 GM/dL (11.7-16.9); MCH 32.7 pg (25.7-33.7); MCHC 35.6 g/dl (32.0-35.9); MEAN CELL VOLUME 91.9 fl (80-96); MEAN PLT VOLUME 7.7 fl (7.5-11.1); MONO % 9.3 % (3.8-10.2); NEUT % 76.7 % (42.8-82.8); PLATELET COUNT 140 K/MM3 (134-434); RBC 3.82 M/mm3 (4.00-5.60); RDW 13.6 % (11.9-15.9); WHITE BLOOD COUNT 7.5 K/mm3 (4.0-10.0)
[2018-11-24 08:06] LABS: ALBUMIN 2.9 g/dl (3.4-5.0); ALK PHOS 70 U/L (45-117); ANION GAP 7 MMOL/L (8-16); BILIRUBIN,TOTAL 0.8 mg/dL (0.2-1); BLOOD UREA NITROGEN 10 mg/dL (7-18); CALCIUM 8.2 mg/dL (8.5-10.1); CHLORIDE 109 mmol/L (98-107); CO2 28 mmol/L (21-32); CREATININE 0.7 mg/dL (0.55-1.3); GLUCOSE,RANDOM 116 mg/dL (74-106); POTASSIUM 3.9 mmol/L (3.5-5.1); SGOT/AST 46 U/L (15-37); SGPT/ALT 79 U/L (13-61); SODIUM 144 mmol/L (136-145); TOT PROT 5.5 g/dl (6.4-8.2)
[2018-11-24] MEDS: SODIUM CHLORIDE 1,000 ML IV SCH (08:55)
--- NOTE | 2018-11-24 09:18 | PN ---
S CIWA - CIWA Score Nausea/Vomitin-No Nausea/No Vomiting Muscle Tremors: None Anxiety: 4-Mod. Anxious/Guarded Agitation: 0-Normal Activity Paroxysmal Sweats: No Perspiration Orientation: 0-Oriented Auditory Disturbances: 0-None Visual Disturbances: 0-None Headache: 0-None Present BHS COWS - Scale Resting Pulse: 0= [place] 80 or Below Sweatin= Chills/Flushing Restless Observation: 1= Difficult to Sit Still Pupil Size: 0= Normal to Room Light Bone or Joint Aches: 2= Severe Diffuse Aches Runny Nose/ Eye Tearin= Nasal Congestion GI Upset > 30mins: 1= Stomach Cramp Tremor Observation of Outstretched Hands: 0= None Yawning Observation: 0= None Anxiety or Irritability: 2=Irritable/Anxious Goose Flesh Skin: 0=Smooth Skin COWS Score: 8 BHS Progress Note (SOAP) Subjective: pateint referred for consultation after transfer from [facility] for fall/ LOC , patient states currently feeling better denies nausea / vomiting/ diarrhea , reports anxious to return to detox/ rehab and long-term residential. Active Medications Sodium Chloride (Normal Saline -) 1,000 mls @ 100 mls/hr IV [facility] Last Admin: 11/24/18 08:55 Dose: 100 mls/hr Ondansetron HCl (Zofran Injection) 4 mg IVPUSH Q4H PRN PRN Reason: NAUSEA AND/OR VOMITING Objective: Vital Signs - 24 hr 11/23/18 11/23/18 11/23/18 11:02 11:36 14:48 Temperature 99 F 98.3 F 98.7 F Pulse Rate Pulse Rate [ 89 89 75 Right Radial] Respiratory 16 16 16 Rate Blood Pressure Blood Pressure 97/43 L 110/64 116/60 [Left Arm] O2 Sat by Pulse 96 97 98 Oximetry (%) 11/23/18 11/23/18 11/23/18 16:51 17:01 20:32 Temperature 98.8 F 98.4 F Pulse Rate 97 H 86 Pulse Rate [ Right Radial] Respiratory 20 20 Rate Blood Pressure 124/72 119/64 Blood Pressure [Left Arm] O2 Sat by Pulse 96 Oximetry (%) 11/24/18 11/24/18 00:32 04:00 Temperature 97.7 F Pulse Rate 73 Pulse Rate [ Right Radial] Respiratory 20 Rate Blood Pressure 117/96 Blood Pressure [Left Arm] O2 Sat by Pulse 96 Oximetry (%) 11/24/18 09:15 Assessment: Opiate dependence Sedative dependence Alcohol dependence Plan: patient interested in transfer back to [facility] rehab or another rehab ( expresses interest in [facility] rehab ) . prn Valium recommended until medically stable for d/c to rehab . methadone 5 mg x one dose - patient with minimal w/d symptoms and no Methadone administered within the last 48 hours . d/w nursing staff .
[2018-11-24] MEDS ORDERED: METHADONE HCL 5 MG TABLET PO ONE (09:23)
[2018-11-24] MEDS ORDERED: PROCHLORPERAZINE INJECTION 10 MG/2 ML VIAL IVPB PRN (09:25)
[2018-11-24 10:00] LABS: MAGNESIUM 2.2 mg/dL (1.8-2.4)
[2018-11-24] MEDS: diazePAM 5 MG TABLET PO PRN ×2 (10:24→14:41)
[2018-11-24] MEDS ORDERED: NAPH,MB-DB/K PH,MBDB POWDER PACKET PO ONE (11:30)
[2018-11-24 14:50] VITALS: BP 114/58; PULSE 70; TEMP 98.2
--- NOTE | 2018-11-24 15:55 | DS ---
Physical Examination Vital Signs: Vital Signs Temperature 98.2 F 11/24/18 14:48 Pulse Rate 70 11/24/18 14:48 Respiratory Rate 16 11/24/18 14:48 Blood Pressure 114/58 L 11/24/18 14:48 O2 Sat by Pulse Oximetry (%) 96 11/24/18 00:32 Constitutional: Yes: Anxious HENT: Yes: Atraumatic Neck: Yes: Supple Cardiovascular: Yes: Regular Rate and Rhythm Respiratory: Yes: CTA Bilaterally Gastrointestinal: Yes: Normal Bowel Sounds Extremities: Yes: WNL Edema: No Neurological: Yes: Alert, Oriented Labs: CBC, BMP 11/24/18 07:00 11/24/18 07:00 Discharge Summary Reason For Visit: DISORDER OF ELECTROLYTES Current Active Problems Electrolyte abnormality (Acute) - Instructions - Home Medications Comprehensive Discharge Medication List: Ambulatory Orders NK [No Known Home Medication] 11/21/18 patient tolerating diet walking well electrolytes replaced clear to go back to detox
== END 2018-11-24 18:18 | disposition other institution (70) ==
LOC: JER 05:54 → JERBED 11:49 → J8W 15:54
PROVIDERS: ADMIT Internal Medicine; ATTEND Internal Medicine
PROC: 3E033GC Introduction of Other Therapeutic Substance into Peripheral Vein, Percutaneous Approach (ICD-10-PCS; principal; 2018-11-23)
PROC: 3E0337Z Introduction of Electrolytic and Water Balance Substance into Peripheral Vein, Percutaneous Approach (ICD-10-PCS; 2018-11-23)
DX: E87.8 Other disorders of electrolyte and fluid balance, not elsewhere classified (principal); F10.230 Alcohol dependence with withdrawal, uncomplicated; F11.20 Opioid dependence, uncomplicated; F13.20 Sedative, hypnotic or anxiolytic dependence, uncomplicated; F41.9 Anxiety disorder, unspecified; F17.210 Nicotine dependence, cigarettes, uncomplicated
CPT/HCPCS: 36415; 70450-TC; 71045-TC-FY; 80053; 80307; 81003; 82803; 83605; 83735; 84100; 84484; 85025; 85610; 85730; 87040; 87086; 87804; 93005; 93010; 96361; 96365; 96366; 96375; 99285-25; G0378; J7030